=== PATIENT | male | born 1960 | race American Indian/Alaskan Native ===

== ENCOUNTER 2019-05-06 06:03 | Inpatient (IN) | payer MEDICAID ==
[2019-05-06] VITALS (47 sets, daily range): BP systolic 89–149; BP diastolic 45–86
[~2019-05-06] VITALS: Ht 170.2 cm; Wt 90.3 kg
[2019-05-06] MEDS ORDERED: LACTATED RINGERS 1,000 ML IV SCH (07:30)
[2019-05-06 07:41] LABS: CLARITY URINE CLEAR (CLEAR); COLOR URINE YELLOW (YELLOW); KETONES URINE NEGATIVE (NEGATIVE); LEUKOCYTE ESTERASE URINE NEGATIVE (NEGATIVE); NITRITE URINE NEGATIVE (NEGATIVE); OCCULT BLOOD URINE NEGATIVE (NEGATIVE); PH URINE 5.5 (4.5-8.0); PROTEIN URINE NEGATIVE (NEGATIVE); SPECIFIC GRAVITY URINE 1.014 (1.005-1.030); UROBILINOGEN URINE 0.2 E.U./dL (0.2-1.0)
[2019-05-06 07:44] LABS: BASOPHILS % 1.2 % (0.0-2.0); EOSINOPHILS % 2.2 % (0.0-5.0); HEMATOCRIT. 47.5 % (42.0-52.0); HEMOGLOBIN. 16.1 g/dL (14.0-18.0); LYMPHOCYTES % 33.6 % (20.0-50.0); MEAN CORPUSCULAR HEMOGLOBIN 32.8 pg (28.0-32.0); MEAN PLATELET VOLUME 8.1 fl (7.4-10.4); MONOCYTES % 6.5 % (2.0-8.0); NEUTROPHILS % 56.5 % (40.0-76.0); PLATELET 306 x1000/uL (130-400); RED CELL DISTRIBUTION WIDTH 13.6 % (11.6-14.6)
[2019-05-06] MEDS ORDERED: ONDANSETRON HCL 4MG/2ML INJ IV PRN (07:45)
[2019-05-06] MEDS ORDERED: HYDROCODONE/ACETAMINOPHEN 5/325MG TABLET PO PRN (07:45)
[2019-05-06 07:50] LABS: PROTHROMBIN TIME 10.2 sec (9.6-11.0)
[2019-05-06 07:53] LABS: CHLORIDE 111 mEq/L (98-107)
[2019-05-06] MEDS ORDERED: THROMBIN (BOVINE) 5000 UNITS/VIAL TOP ONE (07:59)
[2019-05-06] MEDS ORDERED: LIDOCAINE HCL/EPINEPHRINE 1%-EPI 1:100,000 20 ML VIAL ONE (07:59)
[2019-05-06] MEDS ORDERED: NORMAL SALINE 0.9% 10 ML SYR ONE (07:59)
[2019-05-06] MEDS ORDERED: BACITRACIN 50,000 UNITS/VIAL ONE (07:59)
[2019-05-06] MEDS ORDERED: NICARDIPINE 100 MG in SODIUM CHLORIDE 0.9% 60 ML IV PRN ×2 (08:00→12:15)
[2019-05-06] MEDS ORDERED: FENTANYL CITRATE/PF 50MCG/ML 2ML VIAL ONE ×3 (10:29→11:07)
[2019-05-06] MEDS ORDERED: GLYCOPYRROLATE 0.2 MG/ML 2ML VIAL ONE (10:29)
[2019-05-06] MEDS ORDERED: SODIUM CHLORIDE 0.9% 10ML VIAL ONE (10:29)
[2019-05-06] MEDS ORDERED: NEOSTIGMINE METHYLSULFATE 1MG/ML 10 ML VIAL ONE (10:29)
[2019-05-06] MEDS ORDERED: ROCURONIUM BROMIDE 10MG/ML VIAL 5ML IV ONE ×3 (10:29→11:48)
[2019-05-06] MEDS ORDERED: MIDAZOLAM HCL 2 MG/2 ML VIAL ONE (10:29)
[2019-05-06] MEDS ORDERED: PROPOFOL 200MG/20ML VIAL IV ONE ×2 (10:29→11:01)
[2019-05-06] MEDS ORDERED: LIDOCAINE HCL/PF 1% 10 MG/ML 5ML VIAL ONE (10:29)
[2019-05-06] MEDS ORDERED: SUCCINYLCHOLINE CHLORIDE 200MG/10ML IV ONE (10:30)
[2019-05-06] MEDS ORDERED: METOCLOPRAMIDE HCL 10MG/2ML VIAL ONE (10:30)
[2019-05-06] MEDS ORDERED: PHENYLEPHRINE HCL 10 MG/ML 1ML (IV VIAL) IV ONE (10:30)
[2019-05-06] MEDS ORDERED: EPHEDRINE SULFATE 50MG/ML VIAL ONE (10:30)
[2019-05-06] MEDS: MORPHINE SULFATE 4 MG/ML CPJ (NOT FOR IM USE) IV PRN ×2 (12:42→14:45)
[2019-05-06] MEDS: DEXT 5%/LACTATED RINGERS 1,000 ML IV SCH ×2 (13:00→23:58)
[2019-05-06] MEDS ORDERED: TAMS-11 PO (13:02)
[2019-05-06] MEDS ORDERED: ATOR10TA69 PO (13:02)
[2019-05-06] MEDS ORDERED: PANT40TA4 PO (13:02)
[2019-05-06] MEDS ORDERED: DULO30CA52 PO (13:02)
[2019-05-06] MEDS ORDERED: FAMO-133 PO (13:02)
[2019-05-06] MEDS ORDERED: HYDR-459 PO (13:02)
[2019-05-06] MEDS ORDERED: MECL-159 PO (13:02)
[2019-05-06] MEDS ORDERED: TRAZ-251 PO (13:02)
[2019-05-06] MEDS ORDERED: ASPI-1497 PO (13:02)
[2019-05-06] MEDS ORDERED: ACET-2708 PO (13:03)
[2019-05-06] MEDS ORDERED: FINA5TAB11 PO (13:03)
[2019-05-06] MEDS ORDERED: OXYB5TAB17 PO (13:03)
[2019-05-06] MEDS ORDERED: TOLT4CAP13 PO (13:03)
[2019-05-06] MEDS: DEXAMETHASONE 4MG/ML 1ML VIAL IV SCH ×3 (13:30→23:58)
[2019-05-06] MEDS ORDERED: IPRATROPIUM/ALBUTEROL 0.5-3(2.5)MG/3ML NEB HHN PRN (13:30)
[2019-05-06] MEDS ORDERED: IPRATROPIUM/ALBUTEROL 0.5-3(2.5)MG/3ML NEB ONE (13:36)
[2019-05-06] MEDS ORDERED: HYDROMORPHONE PCA 10MG/50ML IV PRN (14:00)
[2019-05-06] MEDS ORDERED: CEFAZOLIN SODIUM 1000MG/VIAL IV SCH (14:00)
[2019-05-06] MEDS ORDERED: ONDANSETRON INJ IV PRN (14:00)
[2019-05-06] MEDS ORDERED: DIPHENHYDRAMINE INJ IV PRN (14:00)
[2019-05-06] MEDS ORDERED: NALOXONE INJ IV PRN (14:00)
[2019-05-06] MEDS ORDERED: PANTOPRAZOLE SODIUM 40 MG/VIAL IV NR (17:42)
[2019-05-06] MEDS: CEFAZOLIN 1000MG PREMIX 50 ML IV SCH (17:50)
[2019-05-07] VITALS (71 sets, daily range): BP systolic 83–127; BP diastolic 38–81
[2019-05-07] MEDS: CEFAZOLIN 1000MG PREMIX 50 ML IV SCH ×3 (03:04→16:48)
[2019-05-07] MEDS: DEXAMETHASONE 4MG/ML 1ML VIAL IV SCH ×3 (06:00→16:48)
[2019-05-07] MEDS: PANTOPRAZOLE SODIUM 40 MG/VIAL IV SCH (08:05)
[2019-05-07] MEDS: DEXT 5%/LACTATED RINGERS 1,000 ML IV SCH ×3 (11:12→22:48)
[2019-05-08] VITALS: BP 103/53
[2019-05-08] MEDS: DEXAMETHASONE 4MG/ML 1ML VIAL IV SCH ×3 (00:42→12:11)
[2019-05-08] MEDS: CEFAZOLIN 1000MG PREMIX 50 ML IV SCH ×2 (01:08→09:12)
[2019-05-08 04:00] VITALS: BP 99/60
[2019-05-08 08:00] VITALS: BP 105/69
[2019-05-08] MEDS: PANTOPRAZOLE SODIUM 40 MG/VIAL IV SCH (08:55)
[2019-05-08 12:00] VITALS: BP 119/77
[2019-05-08] MEDS: DEXT 5%/LACTATED RINGERS 1,000 ML IV SCH (14:37)
[2019-05-08 16:00] VITALS: BP 129/74
[2019-05-08 17:27] VITALS: BP 129/74
[2019-05-08] MEDS ORDERED: HYDR-4001 MT (18:18)
[2019-05-08] MEDS ORDERED: MORPHINE SULFATE 4 MG/ML CPJ (NOT FOR IM USE) IV PRN (19:00)
[2019-05-08] MEDS ORDERED: FAMOTIDINE 20MG/2ML VIAL IV SCH (21:00)
[2019-05-09] MEDS ORDERED: HYDR-4001 MT (12:57)
== END 2019-05-08 18:40 | disposition home or self-care (01) | DRG 321 ==
LOC: OR 06:03 → MICUNO 06:04 → 6EST 05-07 16:32
PROVIDERS: ADMIT Neurological Surgery; ATTEND Neurological Surgery
PROC: 0RG10A0 Fusion of Cervical Vertebral Joint with Interbody Fusion Device, Anterior Approach, Anterior Column, Open Approach (ICD-10-PCS; principal; 2019-05-06)
PROC: 0RB30ZZ Excision of Cervical Vertebral Disc, Open Approach (ICD-10-PCS; 2019-05-06)
PROC: BR101ZZ Fluoroscopy of Cervical Spine using Low Osmolar Contrast (ICD-10-PCS; 2019-05-06)
DX: M50.022 Cervical disc disorder at C5-C6 level with myelopathy (principal); G82.50 Quadriplegia, unspecified; M48.02 Spinal stenosis, cervical region; M47.12 Other spondylosis with myelopathy, cervical region; E78.5 Hyperlipidemia, unspecified; G47.33 Obstructive sleep apnea (adult) (pediatric); J30.2 Other seasonal allergic rhinitis; K21.9 Gastro-esophageal reflux disease without esophagitis; N40.0 Benign prostatic hyperplasia without lower urinary tract symptoms; M50.122 Cervical disc disorder at C5-C6 level with radiculopathy; Z79.899 Other long term (current) drug therapy; Z68.31 Body mass index [BMI] 31.0-31.9, adult
CPT/HCPCS: 36415; 72040; 72141; 76000; 80053; 81003; 85025; 86850; 86900; 88300; 88304; 88311; 94003; 94640; 95863; 95925; 95926; 95928; 95929; 95940; 97116; 97162; 97166; 97530; 97535; A6261; C1713; C9113; J0330; J0690; J1100; J1170; J2250; J2270; J2370; J2405; J2704; J2710; J2765; J3010; J3490; J7121; J7620; A4315

== ENCOUNTER → 2020-05-14 | Outpatient (CLI) | payer MEDICARE, MEDICAID ==
[~2020-05-14] MED LIST: ACET-2708 PO; ASPI-1497 PO; ATOR10TA69 PO; DULO30CA52 PO; FAMO-133 PO; FINA5TAB11 PO; HYDR-4001 MT; HYDR-459 PO; MECL-159 PO; OXYB5TAB17 PO; PANT40TA51 PO; TAMS-11 PO; TOLT4CAP13 PO; TRAZ-251 PO
== END | disposition home or self-care (01) ==
LOC: MRI 12:24
PROVIDERS: ATTEND Neurological Surgery
DX: M51.35 Other intervertebral disc degeneration, thoracolumbar region (principal); M48.061 Spinal stenosis, lumbar region without neurogenic claudication
CPT/HCPCS: 72148

== ENCOUNTER → 2020-05-15 | Outpatient (CLI) | payer MEDICARE, MEDICAID | END | disposition home or self-care (01) | LOC: RAD 09:54 | PROVIDERS: ATTEND Neurological Surgery | DX: M43.22 Fusion of spine, cervical region (principal) | CPT/HCPCS: 72052 ==